=== PATIENT | male | born 1960 | race Caucasian/White ===

== ENCOUNTER 2018-12-16 16:07 | Emergency (ER) | payer MEDICAID, SELFPAY ==
[2018-12-16 16:09] VITALS: BP 117/68; PULSE 85; RESP 19; TEMP 37.1; O2SAT 100; BMI 14.3
--- NOTE | 2018-12-16 16:28 | RAD_ITS ---
STUDY: X-RAY CHEST REASON FOR EXAM: Male, 58 years old. Fever TECHNIQUE: Single frontal view of the chest. COMPARISON: None. FINDINGS: The lungs are clear and expanded. There is no demonstrated pleural abnormality. Normal size heart. Normal mediastinum and lillie. Normal visualized pulmonary arteries. Normal visualized aortic arch and descending thoracic aorta. Normal visualized thoracic spine. Normal visualized ribs, clavicles, and shoulders. There is no demonstrated abnormality of the visualized soft tissue structures of the upper abdomen. RAD/Chest 1 View (Portable) IMPRESSION: Normal x-ray examination of the chest. Electronically Signed: Jimmy Norman MD at 17:50 EDT Tel , Service support ,
--- NOTE | 2018-12-16 16:31 | EKG12_ITS ---
Test Reason : WOUND Blood Pressure : / mmHG Vent. Rate : 126 BPM Atrial Rate : 126 BPM P-R Int : 104 ms QRS Dur : 190 ms QT Int : 412 ms P-R-T Axes : 044 023 263 degrees QTc Int : 596 ms Atrial Flutter Low Voltage QRS (Limb Leads) Abnormal ECG Confirmed by MIRELA PATEL, AYANNA ([id number]), online editor SOLANGE ALVAREZ ([id number]) on 12/18/2018 9:55:03 AM Referred By: MILEY Confirmed By:AYANNA DIETZ MD
--- NOTE | 2018-12-16 16:32 | RAD_ITS ---
We are attempting to reach an attending provider to discuss findings. An addendum with communication details will be sent when the communication is complete. STUDY: X-RAY - RIGHT FOOT CLINICAL: Male, 58 years old. Infection TECHNIQUE: 3 view(s) of the foot. COMPARISON: None. FINDINGS: Medial and distal soft tissue swelling. Soft tissue air is noted. Erosive changes involving the head of the first metatarsal and the base of the first proximal phalanx suspicious for osteomyelitis. RAD/Foot min 3 Views IMPRESSION: Soft tissue air is noted. Gas-forming infection cannot be excluded. Erosive changes involving the head of the first metatarsal and the base of the first proximal phalanx suspicious for osteomyelitis. Electronically Signed: Jimmy Norman MD at 17:49 EDT Tel , Service support ,
--- NOTE | 2018-12-16 16:33 | RAD_ITS ---
STUDY: X-RAY - RIGHT TIBIA AND FIBULA REASON FOR EXAM: Male, 58 years old. Infection TECHNIQUE: 2 view(s) of the tibia and fibula were obtained. COMPARISON: None. FINDINGS: Normal visualized tibia. Normal visualized fibula. The soft tissue structures are unremarkable. RAD/Tibia & Fibula 2 Views IMPRESSION: Normal x-ray examination of the tibia and fibula. Electronically Signed: Jimmy Norman MD at 17:49 EDT Tel , Service support ,
--- NOTE | 2018-12-16 16:34 | ED.DCSUM_ITS ---
History of Present Illness Chief Complaint: Wound Informant: Patient Onset: Month(s) Current Severity: Moderate Narrative: The patient presents the right and foot infection that has been developing over the course of about a month indicates she suffered no obvious trauma no obvious cause to this process, it developed as you describes as some redness to the skin and then it just persisted he developed ulceration and drainage and redness that is gotten worse to the point he cannot bear at home he presents for evaluation Denies diabetes or any past history and again no trauma denies negative review of systems no fever no cough no chest or abdominal pain Past Medical History - Allergies and Home Meds Allergies/Adverse Reactions: Allergies No Known Allergies Allergy (Verified 12/16/18 16:08) Primary Care Physician: NOT,DEFINED [NON-STAFF] - Past Medical History: - Smoking Status: Never smoker Review of Systems ROS: - Significant right foot infection only General: Denies: Chills, Fever, Sweats Eyes: Denies: Visual changes - bilaterally, Diplopia ENT: Denies: Rhinorrhea, Sore throat Cardiovascular: Denies: Chest pain, Palpitations Respiratory: Denies: Dyspnea, Cough, Dyspnea on exertion Gastrointestinal: Denies: Abdominal pain, Nausea, Vomiting, Diarrhea, Melena, Hematochezia Genitourinary: Denies: Dysuria, Hematuria, Frequency Musculoskeletal: Reports: -. Denies: Back pain, Extremity Pain Skin: Denies: Rash, Wounds Neurological: Denies: Headache, Weakness, Numbness Physical Exam Vital Signs/Narrative: Vital Signs Temp Pulse Resp BP Pulse Ox 12/16/18 16:09 98.8 F 85 19 H 117/68 100 Extremities: - - Right foot there is obvious infection addition of skin gangrenous type appearance of the right medial foot into the great toe there appears to be crepitus bubbling of gas through the skin with palpation drainage of some fluid, very faint dorsalis pedis pulse, redness extends over the medial malleolus the tib-fib shows no obvious areas of tenderness warmth or swelling Diagnostic/Tx/Re-eval - Medical Decision Making Differentials extensive would certainly include gas gangrene at this time x-rays IV fluids IV antibiotics cultures we have asked podiatry to see the patient His white count is 15,000, x-ray shows gas soft tissue of the foot with findings of osteomyelitis, IV antibiotics have been ordered including wound cultures, since lactate is 4.8 his blood sugar returns at approximately 500 IV insulin given, creatinine 1.5 IV fluids administered Spoke with podiatry Dr. Dillon who recommended the patient be transferred to a tertiary care center so he could receive the appropriate level of care Spoke with [facility] transfer service, explained to them that the surgical staff at [facility] report that they cannot care for this patient here and recommend that he be transferred to higher level of care, the patient asked to be transferred to [facility], the transfer center indicated that the hospitalist had accepted the patient in transfer asked that we communicate the condition and status of the patient to the ED attending Dr. Nathan GORDON which I did, they also asked that we speak with the orthopedic surgeon on-call Dr. Ernandez, I spoke with Dr. Ernandez and explained the patient status condition lab results etc. and the fact that the surgical service here recommended the patient be transferred to higher level of care Explained all the above the patient who again agrees to transfer to [facility] for further management At this time the patient is remained hemodynamically stable for transfer Transfer [facility] ED Impression final Gas gangrene infection right foot Sepsis Diabetes mellitus new onset ED Disposition - Plan for ED Patient: Diagnosis: Gas gangrene right foot Referrals: NOT,DEFINED [NON-STAFF] -
[2018-12-16 16:44] LABS: Absolute Lymphocyte Count 0.63 X10^3/uL (0.83-4.51); Absolute Neutrophil Count 13.6 X10^3/uL (2.0-7.7); Basophil# 0.14 X10^3/uL; Basophil% 0.9 % (0-1); Eosinophil# 0.05 X10^3/uL; Eosinophils% 0.3 % (0-5); Hematocrit 37.5 % (40-54); Hemoglobin 13.2 g/dL (13.0-16.5); Lymphocyte # 0.63 X10^3/ul (4.0); Lymphocyte % 4.1 % (19-41); Mean Corp Hgb Conc 35.2 g/dL (32-36); Mean Corpuscular Hgb 29.9 pg (27.0-32.0); Mean Platelet Vol. 9.4 fl (6.2-12.0); Monocyte# 1.05 X10^3/uL; Monocyte% 6.8 % (0-10); NRBC Flagged by Analyzer 0 % (0-5); Neutrophil # 13.56 X10^3/uL (2.7-7.7); Neutrophil % 87.2 % (47-70); Platelet Count 437 K/mm3 (150-450); RBC Distribution Width CV 11.6 % (11.6-14.6); RBC Distribution Width SD 35.9 fl (35.1-43.9); Red Blood Count 4.41 M/mm3 (4.6-6.2); White Blood Count 15.5 K/mm3 (4.4-11.0)
[2018-12-16] MEDS: morphine 8 MG/ML Syringe IV ×2 (16:56→18:23)
[2018-12-16] MEDS: Ondansetron 4 MG/2 ML Vial IV (16:57)
[2018-12-16 17:00] VITALS: BP 127/88; PULSE 124; RESP 18; TEMP 37.1; O2SAT 99
[2018-12-16 17:04] LABS: AST(SGOT) 27 U/L (15-37); Alanine Aminotransfer ALT/SGPT 83 U/L (16-61); Albumin, Serum 3.2 g/dL (3.2-5.0); Alkaline Phosphatase 253 U/L (45-117); Anion Gap 13 (5-15); BUN 20 mg/dL (7-18); BUN/Creat Ratio 13.5 RATIO (10-20); Bilirubin, Direct 0.58 mg/dL (0.00-0.30); Calcium,Total 9.1 mg/dL (8.5-10.1); Chloride 88 mmol/L (98-107); Creatinine, Serum 1.48 mg/dL (0.70-1.30); EST Glomerular Filtration Rate 52 mL/min (>60); Est Glom Filt Rate - Afr Amer 63 mL/min (>60); Estimated Creatinine Clearance 38.86 ml/min; Glucose 479 mg/dL (74-106); Lipase 45 U/L (73-393); Potassium 3.5 mmol/L (3.5-5.1); Protein, Total 8.2 g/dL (6.4-8.2); Sodium Level 124 mmol/L (136-145)
[2018-12-16] MEDS: 0.9% Normal Saline 1,000 ML 1000 ML IV ×2 (17:08→17:38)
[2018-12-16] MEDS: Insulin Lispro 100 UNIT/ML INSULN.PEN 10 UNIT SC (17:47)
[2018-12-16 18:00] VITALS: BP 134/68; PULSE 121; RESP 16; TEMP 37.1; O2SAT 94
[2018-12-16] MEDS: metroNIDAZOLE 500 MG/100 ML BAG 100 MG IV (18:07)
[2018-12-16 18:08] LABS: M R Staph aureus DNA By PCR Negative (Negative); Probe Check PASS; Specimen Processing Control PASS; Staph aureus DNA By PCR NEGATIVE (Negative)
[2018-12-16] MEDS: 0.9% Normal Saline 1,000 ML 150 ML IV (18:12)
[2018-12-16 18:16] LABS: Lactic Acid 4.8 mmol/L (0.4-2.0)
[2018-12-16] MEDS: 0.9% Normal Saline 1,000 ML 999 ML IV ×2 (18:41)
[2018-12-16 18:48] VITALS: BP 134/84; PULSE 121; RESP 18; O2SAT 96
[2018-12-16 21:54] LABS: Reflex Lactate? Y
--- NOTE | 2018-12-17 14:14 | ED.RN ---
RESULTS OF BLOOD CULTURES AND WOUND CULTURES RESULTED, RESULTS CALLED TO [facility].
== END 2018-12-16 18:59 | disposition short-term general hospital (02) ==
PROVIDERS: Emergency Provider Emergency Medicine
DX: E11.52 Type 2 diabetes mellitus with diabetic peripheral angiopathy with gangrene (principal); A48.0 Gas gangrene; A41.9 Sepsis, unspecified organism; E11.69 Type 2 diabetes mellitus with other specified complication; M86.9 Osteomyelitis, unspecified
CPT/HCPCS: 71045; 73590; 73630; 80048; 80076; 82009; 83605; 83690; 84484; 85025; 87040; 87070; 87077; 87149; 87186; 87205; 87640; 93005; 96365; 96368; 96372; 96374; 96375; 96376; 99285; J7030; J7050; A4216; J2405

== ENCOUNTER 2019-01-24 16:22 | Emergency (ER) | payer MEDICAID, SELFPAY ==
[2019-01-24 16:23] VITALS: BP 137/83; PULSE 82; RESP 16; TEMP 36.1; O2SAT 99; BMI 25.0
--- NOTE | 2019-01-24 16:36 | EKG12_ITS ---
Test Reason : PALPS Blood Pressure : / mmHG Vent. Rate : 078 BPM Atrial Rate : 078 BPM P-R Int : 164 ms QRS Dur : 094 ms QT Int : 386 ms P-R-T Axes : 029 022 068 degrees QTc Int : 440 ms Normal sinus rhythm Normal ECG Confirmed by ZELDA PATEL, KHOA ([id number]), news video editor SOLANGE ALVAREZ ([id number]) on 01/31/2019 11:31:40 AM Referred By: LITA Confirmed By:DRE NDIAYE MD
[2019-01-24 17:11] LABS: Absolute Lymphocyte Count 1.35 X10^3/uL (0.83-4.51); Absolute Neutrophil Count 0.8 X10^3/uL (2.0-7.7); Basophil# 0.02 X10^3/uL; Basophil% 0.7 % (0-1); Eosinophil# 0.26 X10^3/uL; Eosinophils% 8.5 % (0-5); Hematocrit 36.2 % (40-54); Hemoglobin 12.3 g/dL (13.0-16.5); Lymphocyte # 1.35 X10^3/ul (4.0); Lymphocyte % 44.3 % (19-41); Mean Corpuscular Hgb 29.3 pg (27.0-32.0); Mean Corpuscular Volume 86.2 fL (80-94); Mean Platelet Vol. 8.8 fl (6.2-12.0); Monocyte% 19.7 % (0-10); NRBC Flagged by Analyzer 0 % (0-5); Neutrophil # 0.82 X10^3/uL (2.7-7.7); Neutrophil % 26.8 % (47-70); POSITIVE DIFFERENTIAL YES; Platelet Count 213 K/mm3 (150-450); RBC Distribution Width CV 13.2 % (11.6-14.6); RBC Distribution Width SD 41.5 fl (35.1-43.9); White Blood Count 3.1 K/mm3 (4.4-11.0)
[2019-01-24 17:12] LABS: Differential Indicated SCAN CRITERIA MET
--- NOTE | 2019-01-24 17:13 | ED.DCSUM_ITS ---
History of Present Illness Chief Complaint: Palpitations Informant: Patient Onset: Days Timing: Intermittent Current Severity: Mild Maximum Severity: Mild Narrative: The patient is a 58-year-old male with medical history significant for recent hospitalization for osteomyelitis of the foot who ended up with bacteremia and atrial fibrillation while he was hospitalized. The patient states that he was discharged about a month ago. He states from time to time, he will feel like his heart is skipping beats. He states it only last seconds. He denies any chest pain or dyspnea. He states he was following up with his infectious disease doctor who told him that he should be evaluated. The patient is anticoagulated on Eliquis. He denies any weakness or lightheadedness. Again, he states he just feels like he can feel the beats from time to time. It has not been persistent. Prior similar symptoms: Yes Recent Illness/Hospitalization: Yes Past Medical History - Allergies and Home Meds Allergies/Adverse Reactions: Allergies No Known Allergies Allergy (Verified 01/24/19 16:23) Primary Care Physician: Care Physician,No Primary [NON-STAFF] - Prior records reviewed: Yes Past Medical History: - - Diabetes, foot infection, paroxysmal atrial fibrillation Surgical History: noncontributory Smoking Status: Never smoker Review of Systems General: Denies: Chills, Fever, Sweats Eyes: Denies: Visual changes - bilaterally, Diplopia ENT: Denies: Rhinorrhea, Sore throat Cardiovascular: Reports: Palpitations. Denies: Chest pain Respiratory: Denies: Dyspnea, Cough, Dyspnea on exertion Gastrointestinal: Denies: Abdominal pain, Nausea, Vomiting, Diarrhea, Melena, Hematochezia Genitourinary: Denies: Dysuria, Hematuria, Frequency Musculoskeletal: Denies: Back pain, Extremity Pain Skin: Denies: Rash, Wounds Neurological: Denies: Headache, Weakness, Numbness Physical Exam Vital Signs/Narrative: Vital Signs Temp Pulse Resp BP Pulse Ox 01/24/19 16:23 96.9 F L 82 16 137/83 H 99 Inital Vital Signs reviewed: Yes General: Well nourished, Well developed, No Acute Distress Head: Normocephalic, Atraumatic Eyes: Perrl, EOMI ENT: Moist mucous membranes, No rhinorrhea Neck: Supple, Nontender Cardiovascular: Regular rate, Regular rhythm, No murmurs Respiratory: No distress, CTA bilaterally, Chest nontender Abdomen: Soft, Nontender, Nondistended, Normal bowel sounds Back: Nontender, Normal Inspection Extremities: Nontender, No edema Skin: Normal color, No rash Neurological: Alert, Oriented x3, Cranial nerves II-XII grossly intact, Normal Strength, Normal Sensation Psychological: Normal affect, Normal Mood Diagnostic/Tx/Re-eval - Rhythm Strip Rhythm Strip: Sinus Rhythm Rate: 70 Ectopy: PVC(s) - EKG Initial EKG Interpretation: Sinus Rhythm, No Acute Injury Pattern Prior: Unchanged - Medical Decision Making The patient presents with intermittent palpitations. He states that only last seconds. He is in a normal sinus rhythm now. EKG was obtained which did confirm this. There is normal axis and intervals. There is no prolonged QT. Patient was observed. He did have a few PVCs on the monitor. Metabolic work-up was pursued and was unremarkable. The patient has not been in A. fib. My suspicion that these are symptomatic PVCs. I do not feel need for further work- up. At this point, I do feel that he is safe for outpatient follow-up. Patient will be discharged home. Impression 1. PVCs ED Disposition - Plan for ED Patient: Instructions: Premature Ventricular Contractions Referrals: Care Physician,No Primary [NON-STAFF] -
[2019-01-24 17:26] LABS: AST(SGOT) 18 U/L (15-37); Alanine Aminotransfer ALT/SGPT 21 U/L (16-61); Albumin, Serum 3.9 g/dL (3.2-5.0); Alkaline Phosphatase 58 U/L (45-117); Anion Gap 6 (5-15); BUN 16 mg/dL (7-18); BUN/Creat Ratio 16.6 RATIO (10-20); Calcium,Total 9.1 mg/dL (8.5-10.1); Chloride 106 mmol/L (98-107); Creatinine, Serum 0.96 mg/dL (0.70-1.30); EST Glomerular Filtration Rate 86 mL/min (>60); Est Glom Filt Rate - Afr Amer 104 mL/min (>60); Globulin 3.9 g/dL (2.2-4.2); Glucose 171 mg/dL (74-106); Magnesium 1.9 mg/dL (1.6-2.6); Protein, Total 7.8 g/dL (6.4-8.2); Sodium Level 139 mmol/L (136-145)
[2019-01-24 17:36] VITALS: BP 108/69; PULSE 72; RESP 16; O2SAT 97
[2019-01-24 17:45] LABS: Differential Comment SCANNED
== END 2019-01-24 17:37 | disposition home or self-care (01) ==
LOC: ED 17:20
PROVIDERS: Emergency Provider Emergency Medicine; Family Provider Student in an Organized Health Care Education/Training Program; PCP Student in an Organized Health Care Education/Training Program
DX: I49.3 Ventricular premature depolarization (principal); I48.0 Paroxysmal atrial fibrillation; E11.9 Type 2 diabetes mellitus without complications; Z86.19 Personal history of other infectious and parasitic diseases; Z79.4 Long term (current) use of insulin; Z79.01 Long term (current) use of anticoagulants; Z79.899 Other long term (current) drug therapy
CPT/HCPCS: 36592; 80053; 83735; 85025; 93005; 99283